=== PATIENT | male | born 1960 | race Two or more races ===

== ENCOUNTER 2021-08-03 17:04 | Inpatient (IN) | payer MEDICAID ==
[~2021-08-03] VITALS: Ht 167.6 cm; Wt 72.2 kg
[2021-08-03] MEDS ORDERED: OCTREOTIDE ACETATE 100 MCG in SODIUM CHL 0.9% 50 ML IV ONE (18:15)
[2021-08-03] MEDS ORDERED: cefTRIAXone 1GM/50ML D5W 50 ML IV ONE (18:15)
[2021-08-03] MEDS ORDERED: PANTOPRAZOLE 40 MG/10 ML VIAL INJ IV ONE (18:15)
[2021-08-03 18:51] LABS: INR 1.71 (0.9-1.15); Partial Thromboplastin Time 24.8 sec (23.6-33.0)
[2021-08-03] MEDS ORDERED: IOHEXOL 300 MG/ML 100ML BOTTLE IJ ONE ×2 (18:53→21:30)
[2021-08-03 18:54] LABS: Albumin 2.1 g/dL (3.4-5.0); Calcium 7.8 mg/dL (8.5-10.1); Potassium 3.9 mmol/L (3.5-5.1)
[2021-08-03 18:57] LABS: Lactic Acid w/Reflex 5.3 mmol/L (0.4-2.0)
[2021-08-03 19:05] LABS: BUN/Creatinine Ratio 48.4; Bilirubin, Total 4.6 mg/dL (0.2-1.0); Total Protein 5.7 g/dL (6.4-8.2)
[2021-08-03 19:20] LABS: Eosinophils # (auto) 0 10 ^3/uL (0-0.8); Hematocrit 28.4 % (41.0-53.0); Hemoglobin 9.5 g/dL (13.5-17.5); Monocytes # (auto) 0.7 10 ^3/uL (0-1.3)
[2021-08-03 19:35] LABS: Basophils # (auto) 0.1 10 ^3/uL (0-0.2); Basophils % (auto) 0.9 % (0.0-2.0); Eosinophils % (auto) 0.2 % (0.0-7.0); Lymphocytes # (auto) 1.1 10 ^3/uL (0.4-5.4); Lymphocytes % (auto) 18.2 % (10.0-50.0); Mean Corpuscular Hemoglobin 35.5 pg (28.0-32.0); Mean Corpuscular Hgb Conc. 33.6 g/dL (32.0-36.0); Mean Corpuscular Volume 105.5 fL (80.0-100.0); Monocytes % (auto) 10.7 % (0.0-12.0); Neutrophils # (auto) 4.3 10 ^3/uL (1.6-8.6); Nucleated Red Blood Cells % 0.9 %; Red Blood Cells 2.69 10^6/uL (4.5-5.90); Red Cell Distribution Width 15.1 % (11.8-14.3); White Blood Cell 6.1 10^3/uL (4.4-10.8)
[2021-08-03] MEDS ORDERED: SODIUM CHLORIDE 0.9% 1,000 ML IV ONE (19:45)
[2021-08-03] MEDS: OCTREOTIDE ACETATE 500 MCG in SODIUM CHL 0.9% 99 ML IV SCH (20:40)
[2021-08-03] MEDS ORDERED: ONDANSETRON HCL 4 MG/2 ML VIAL IV ONE (20:45)
[2021-08-03 22:34] VITALS: BP 97/58
[2021-08-03 23:55] VITALS: BP 94/61
[2021-08-04] VITALS (14 sets, daily range): BP systolic 90–125; BP diastolic 47–77
[2021-08-04] MEDS ORDERED: ACETAMINOPHEN 325 MG TAB PO ONE
[2021-08-04] MEDS ORDERED: PANTOPRAZOLE 40 MG/10 ML VIAL INJ IV ONE ×2 (01:00→02:05)
[2021-08-04] MEDS ORDERED: PANTOPRAZOLE 40mg/50ML NS AE 50 ML IV SCH (01:00)
[2021-08-04] MEDS ORDERED: VANCOMYCIN 1GM/250ML 250 ML IV ONE (01:00)
[2021-08-04] MEDS ORDERED: NITROGLYCERIN 0.4 MG SL TAB SL PRN (01:00)
[2021-08-04] MEDS ORDERED: MORPHINE SULFATE INJECTION 2 MG/ML SYRG IV PRN ×2 (01:00→06:00)
[2021-08-04 01:49] LABS: Hematocrit 23.7 % (41.0-53.0); Hemoglobin 8.3 g/dL (13.5-17.5)
[2021-08-04] MEDS: SODIUM CHLORIDE 0.9% 1,000 ML IV SCH ×3 (01:50→18:48)
[2021-08-04] MEDS ORDERED: ACETAMINOPHEN 325 MG TAB PO PRN (06:00)
[2021-08-04] MEDS: PIPERACILLIN-TAZOB 3.375GM 100 ML IV SCH ×3 (06:00→18:49)
[2021-08-04] MEDS ORDERED: HYDROcodone-ACET 5/325MG TAB PO PRN (06:00)
[2021-08-04] MEDS ORDERED: ONDANSETRON HCL 4 MG/2 ML VIAL IV SCH (06:00)
[2021-08-04 06:10] LABS: Basophils # (auto) 0 10 ^3/uL (0-0.2); Eosinophils # (auto) 0.1 10 ^3/uL (0-0.8); Neutrophils # (auto) 3.4 10 ^3/uL (1.6-8.6); Nucleated Red Blood Cells % 0.1 %
[2021-08-04] MEDS: NOREPINEPHRINE 8 MG/250ML KIT 250 ML IV SCH (06:10)
[2021-08-04 06:13] LABS: Basophils % (auto) 0.8 % (0.0-2.0); Hematocrit 23.5 % (41.0-53.0); Lymphocytes # (auto) 1.7 10 ^3/uL (0.4-5.4); Lymphocytes % (auto) 29.2 % (10.0-50.0); Mean Corpuscular Hemoglobin 35.2 pg (28.0-32.0); Mean Corpuscular Hgb Conc. 34.1 g/dL (32.0-36.0); Mean Corpuscular Volume 103.1 fL (80.0-100.0); Monocytes # (auto) 0.6 10 ^3/uL (0-1.3); Red Blood Cells 2.28 10^6/uL (4.5-5.90); Red Cell Distribution Width 17.4 % (11.8-14.3); White Blood Cell 5.7 10^3/uL (4.4-10.8)
[2021-08-04 06:15] LABS: Albumin 2.1 g/dL (3.4-5.0); Calcium 7.1 mg/dL (8.5-10.1)
[2021-08-04 06:22] LABS: BUN/Creatinine Ratio 46.8; Bilirubin, Total 3.3 mg/dL (0.2-1.0); Potassium 3.4 mmol/L (3.5-5.1); Total Protein 5.2 g/dL (6.4-8.2)
[2021-08-04 06:24] LABS: INR 1.54 (0.9-1.15)
[2021-08-04 06:35] LABS: Albumin 2.1 g/dL (3.4-5.0); BUN/Creatinine Ratio 41.6; Bilirubin, Total 3.1 mg/dL (0.2-1.0); Calcium 6.8 mg/dL (8.5-10.1); Potassium 3.2 mmol/L (3.5-5.1); Total Protein 5.2 g/dL (6.4-8.2)
[2021-08-04] MEDS ORDERED: ONDANSETRON HCL 4 MG/2 ML VIAL IV PRN (07:15)
[2021-08-04] MEDS ORDERED: PANTOPRAZOLE 40 MG/10 ML VIAL INJ IV SCH (10:00)
[2021-08-04] MEDS: VANCOMYCIN PER PHARMACY 0 MG IV SCH (11:45)
[2021-08-04 11:47] LABS: Urine Bacteria NONE SEEN /hpf (None Seen); Urine Blood Negative /uL (Negative); Urine Specific Gravity 1.035 (1.001-1.035); Urine WBC <1 /hpf (0 - 3)
[2021-08-04] MEDS ORDERED: FOLIC ACID 1 MG, MULTIPLE VITAMIN 10 ML, MAGNESIUM SULF SDV 50% 8 MEQ, THIAMINE INJ 100... INJ ONE ×5 (12:00)
[2021-08-04] MEDS: OCTREOTIDE ACETATE 500 MCG in SODIUM CHL 0.9% 99 ML IV SCH ×2 (12:05→14:15)
[2021-08-04 12:53] LABS: Hematocrit 25.8 % (41.0-53.0); Hemoglobin 8.9 g/dL (13.5-17.5)
[2021-08-04] MEDS: POTASSIUM CHL 20MEQ/100ML 100 ML IV SCH ×2 (13:09→15:58)
[2021-08-04] MEDS: VANCOMYCIN 1GM/250ML 250 ML IV SCH (15:18)
[2021-08-04 18:14] LABS: Hematocrit 25.3 % (41.0-53.0); Hemoglobin 8.6 g/dL (13.5-17.5)
[2021-08-04] MEDS: PANTOPRAZOLE 40 MG/10 ML VIAL INJ IV SCH (18:48)
[2021-08-04 22:39] LABS: Hematocrit 26.6 % (41.0-53.0); Hemoglobin 9.3 g/dL (13.5-17.5)
[2021-08-05] VITALS (7 sets, daily range): BP systolic 95–149; BP diastolic 60–99
[2021-08-05] MEDS: OCTREOTIDE ACETATE 500 MCG in SODIUM CHL 0.9% 99 ML IV SCH ×3 (00:23→22:06)
[2021-08-05] MEDS: PIPERACILLIN-TAZOB 3.375GM 100 ML IV SCH ×5 (00:36→23:44)
[2021-08-05] MEDS: NOREPINEPHRINE 8 MG/250ML KIT 250 ML IV SCH (01:00)
[2021-08-05] MEDS: SODIUM CHLORIDE 0.9% 1,000 ML IV SCH ×3 (01:00→19:30)
[2021-08-05] MEDS ORDERED: LORazepam 2MG/ML-1ML VIAL IV PRN (01:15)
[2021-08-05 02:34] LABS: Hematocrit 24.9 % (41.0-53.0); Hemoglobin 8.5 g/dL (13.5-17.5)
[2021-08-05] MEDS: VANCOMYCIN 1GM/250ML 250 ML IV SCH ×2 (03:13→15:30)
[2021-08-05] MEDS: PANTOPRAZOLE 40 MG/10 ML VIAL INJ IV SCH ×2 (05:46→18:00)
[2021-08-05 06:29] LABS: Basophils # (auto) 0 10 ^3/uL (0-0.2); Basophils % (auto) 0.6 % (0.0-2.0); Eosinophils # (auto) 0.1 10 ^3/uL (0-0.8); Monocytes # (auto) 0.4 10 ^3/uL (0-1.3); White Blood Cell 3.2 10^3/uL (4.4-10.8)
[2021-08-05 06:39] LABS: Potassium 3.5 mmol/L (3.5-5.1)
[2021-08-05 06:42] LABS: Eosinophils % (auto) 4.2 % (0.0-7.0); Hematocrit 24.9 % (41.0-53.0); Hemoglobin 8.2 g/dL (13.5-17.5); Lymphocytes % (auto) 31.3 % (10.0-50.0); Mean Corpuscular Hemoglobin 34.8 pg (28.0-32.0); Mean Corpuscular Hgb Conc. 33.1 g/dL (32.0-36.0); Mean Corpuscular Volume 105.1 fL (80.0-100.0); Monocytes % (auto) 12.3 % (0.0-12.0); Neutrophils # (auto) 1.6 10 ^3/uL (1.6-8.6); Neutrophils % (auto) 51.6 % (37.0-80.0); Nucleated Red Blood Cells % 0.2 %; Red Blood Cells 2.37 10^6/uL (4.5-5.90); Red Cell Distribution Width 18.8 % (11.8-14.3)
[2021-08-05 06:51] LABS: Albumin 2.2 g/dL (3.4-5.0); BUN/Creatinine Ratio 18.3; Bilirubin, Total 2.4 mg/dL (0.2-1.0); Calcium 7.1 mg/dL (8.5-10.1); Total Protein 5.2 g/dL (6.4-8.2)
[2021-08-05] MEDS: LORazepam 2MG/ML-1ML VIAL IV PRN ×3 (09:44→18:07)
[2021-08-05] MEDS: VANCOMYCIN PER PHARMACY 0 MG IV SCH (10:00)
[2021-08-05 10:21] LABS: Hematocrit 27.6 % (41.0-53.0)
[2021-08-05 10:23] LABS: Hemoglobin 9.1 g/dL (13.5-17.5)
[2021-08-05] MEDS: GABAPENTIN 300 MG CAP PO SCH ×2 (14:02→22:05)
[2021-08-05 15:38] LABS: Hemoglobin 8.4 g/dL (13.5-17.5)
[2021-08-05 22:17] LABS: Hematocrit 24.9 % (41.0-53.0); Hemoglobin 8.3 g/dL (13.5-17.5)
[2021-08-06] VITALS (12 sets, daily range): BP systolic 97–146; BP diastolic 57–93
[2021-08-06] MEDS: NOREPINEPHRINE 8 MG/250ML KIT 250 ML IV SCH (01:00)
[2021-08-06] MEDS: SODIUM CHLORIDE 0.9% 1,000 ML IV SCH ×3 (01:41→17:00)
[2021-08-06] MEDS: VANCOMYCIN 1GM/250ML 250 ML IV SCH ×3 (03:14→18:43)
[2021-08-06] MEDS: GABAPENTIN 300 MG CAP PO SCH ×3 (06:00→22:52)
[2021-08-06] MEDS: PANTOPRAZOLE 40 MG/10 ML VIAL INJ IV SCH ×2 (06:06→17:50)
[2021-08-06] MEDS: PIPERACILLIN-TAZOB 3.375GM 100 ML IV SCH ×3 (06:06→17:50)
[2021-08-06 06:09] LABS: Eosinophils # (auto) 0.2 10 ^3/uL (0-0.8); Hemoglobin 8.4 g/dL (13.5-17.5); Monocytes # (auto) 0.3 10 ^3/uL (0-1.3); Neutrophils # (auto) 1.6 10 ^3/uL (1.6-8.6); Neutrophils % (auto) 52.6 % (37.0-80.0); White Blood Cell 3.1 10^3/uL (4.4-10.8)
[2021-08-06 06:13] LABS: Basophils # (auto) 0.1 10 ^3/uL (0-0.2); Basophils % (auto) 2.7 % (0.0-2.0); Eosinophils % (auto) 5.7 % (0.0-7.0); Hematocrit 24.5 % (41.0-53.0); Lymphocytes # (auto) 0.9 10 ^3/uL (0.4-5.4); Lymphocytes % (auto) 30.2 % (10.0-50.0); Mean Corpuscular Hemoglobin 35.9 pg (28.0-32.0); Mean Corpuscular Hgb Conc. 34.3 g/dL (32.0-36.0); Mean Corpuscular Volume 104.8 fL (80.0-100.0); Monocytes % (auto) 8.8 % (0.0-12.0); Nucleated Red Blood Cells % 0.1 %; Red Blood Cells 2.34 10^6/uL (4.5-5.90); Red Cell Distribution Width 18.1 % (11.8-14.3)
[2021-08-06 06:20] LABS: Potassium 3.6 mmol/L (3.5-5.1)
[2021-08-06 06:27] LABS: INR 1.44 (0.9-1.15)
[2021-08-06 06:32] LABS: Albumin 2.3 g/dL (3.4-5.0); BUN/Creatinine Ratio 11.8; Bilirubin, Total 2.6 mg/dL (0.2-1.0); Calcium 7.3 mg/dL (8.5-10.1); Total Protein 5.5 g/dL (6.4-8.2)
[2021-08-06] MEDS ORDERED: LIDOCAINE VISCOUS 2% 15ML UD ONE (08:33)
[2021-08-06] MEDS ORDERED: MIDAZOLAM HCL 5 MG/ML-1ML VIAL ONE (08:33)
[2021-08-06] MEDS ORDERED: SODIUM CHLORIDE LOCK 10 ML ONE (08:33)
[2021-08-06] MEDS ORDERED: diphenhdrAMINE HCL 50 MG/1 ML VL ONE (08:34)
[2021-08-06] MEDS ORDERED: fentaNYL CITRATE 100 MCG/2 ML VL ONE (08:34)
[2021-08-06] MEDS: OCTREOTIDE ACETATE 500 MCG in SODIUM CHL 0.9% 99 ML IV SCH ×2 (08:49→16:35)
[2021-08-06] MEDS ORDERED: VANCOMYCIN PER PHARMACY 0 MG IV SCH ×2 (10:00)
[2021-08-06 11:37] LABS: INR 1.49 (0.9-1.15)
[2021-08-06] MEDS: LORazepam 2MG/ML-1ML VIAL IV PRN (17:01)
[2021-08-07 00:15] VITALS: BP 121/75
[2021-08-07] MEDS: LORazepam 2MG/ML-1ML VIAL IV PRN ×2 (00:23→15:12)
[2021-08-07] MEDS: NOREPINEPHRINE 8 MG/250ML KIT 250 ML IV SCH (01:00)
[2021-08-07] MEDS: SODIUM CHLORIDE 0.9% 1,000 ML IV SCH ×2 (01:26→09:37)
[2021-08-07 01:36] LABS: Basophils # (auto) 0 10 ^3/uL (0-0.2); Eosinophils # (auto) 0.2 10 ^3/uL (0-0.8); Hematocrit 23.2 % (41.0-53.0); Hemoglobin 7.9 g/dL (13.5-17.5); Lymphocytes # (auto) 0.8 10 ^3/uL (0.4-5.4); Lymphocytes % (auto) 22.3 % (10.0-50.0); Monocytes # (auto) 0.4 10 ^3/uL (0-1.3); Red Blood Cells 2.19 10^6/uL (4.5-5.90)
[2021-08-07 01:38] LABS: Basophils % (auto) 0.4 % (0.0-2.0); Eosinophils % (auto) 6.9 % (0.0-7.0); Mean Corpuscular Hemoglobin 36.1 pg (28.0-32.0); Mean Corpuscular Hgb Conc. 34.1 g/dL (32.0-36.0); Monocytes % (auto) 10.7 % (0.0-12.0); Neutrophils # (auto) 2.1 10 ^3/uL (1.6-8.6); Neutrophils % (auto) 59.7 % (37.0-80.0); Nucleated Red Blood Cells % 0.2 %; Red Cell Distribution Width 17.8 % (11.8-14.3); White Blood Cell 3.5 10^3/uL (4.4-10.8)
[2021-08-07] MEDS: OCTREOTIDE ACETATE 500 MCG in SODIUM CHL 0.9% 99 ML IV SCH (02:28)
[2021-08-07] MEDS: VANCOMYCIN 1GM/250ML 250 ML IV SCH ×2 (03:41→12:31)
[2021-08-07 05:54] LABS: White Blood Cell 3.4 10^3/uL (4.4-10.8)
[2021-08-07 05:56] LABS: Hematocrit 25.3 % (41.0-53.0); Hemoglobin 8.9 g/dL (13.5-17.5); Mean Corpuscular Hgb Conc. 35.4 g/dL (32.0-36.0); Mean Corpuscular Volume 104.7 fL (80.0-100.0); Red Blood Cells 2.41 10^6/uL (4.5-5.90); Red Cell Distribution Width 17.8 % (11.8-14.3)
[2021-08-07 05:57] LABS: Basophils % (manual) 0 (0.0-2.0); Blast Cells 0; Promyelocytes % 0; Reactive Lymphocytes 0
[2021-08-07] MEDS: PIPERACILLIN-TAZOB 3.375GM 100 ML IV SCH ×3 (05:57→12:32)
[2021-08-07] MEDS: PANTOPRAZOLE 40 MG/10 ML VIAL INJ IV SCH (05:57)
[2021-08-07] MEDS: GABAPENTIN 300 MG CAP PO SCH ×4 (05:57→23:12)
[2021-08-07 06:12] LABS: Albumin 2.2 g/dL (3.4-5.0); BUN/Creatinine Ratio 7.7; Calcium 7.5 mg/dL (8.5-10.1); Potassium 3.9 mmol/L (3.5-5.1)
[2021-08-07 06:14] LABS: Bilirubin, Total 2.5 mg/dL (0.2-1.0); Total Protein 5.6 g/dL (6.4-8.2)
[2021-08-07 06:15] LABS: INR 1.54 (0.9-1.15); Partial Thromboplastin Time 25.1 sec (23.6-33.0)
[2021-08-07 07:01] LABS: Band Neutrophils % (manual) 1; Eosinophils % (manual) 3 (0-7); Lymphocytes % (manual) 35 (10.0-50.0); Metamyelocytes % 1; Monocytes % (manual) 7 (0-12); Myelocytes % 1
[2021-08-07] MEDS ORDERED: SODIUM CHLORIDE LOCK 10 ML ONE (09:19)
[2021-08-07] MEDS ORDERED: LIDOCAINE VISCOUS 2% 15ML UD ONE (09:19)
[2021-08-07] MEDS ORDERED: diphenhdrAMINE HCL 50 MG/1 ML VL ONE (09:20)
[2021-08-07] MEDS: MIDAZOLAM HCL 5 MG/ML-1ML VIAL ONE ×2 (09:54→09:57)
[2021-08-07] MEDS: fentaNYL CITRATE 100 MCG/2 ML VL ONE ×2 (09:54→09:57)
[2021-08-07 12:15] VITALS: BP 147/93
[2021-08-07 13:00] VITALS: BP 147/93
[2021-08-07] MEDS ORDERED: GABA300C10 PO (16:47)
[2021-08-07] MEDS ORDERED: AMOX-277 PO (16:50)
[2021-08-07] MEDS ORDERED: PANT40T PO (16:50)
[2021-08-07 17:00] VITALS: BP 143/92
[2021-08-07 22:00] VITALS: BP 141/89
[2021-08-07] MEDS: AMOXICILLIN/CLAVUL 875 MG TAB PO SCH (23:10)
[2021-08-07] MEDS: PANTOPRAZOLE 40 MG TAB PO SCH (23:13)
[2021-08-08 05:00] VITALS: BP 120/95
[2021-08-08] MEDS: LORazepam 2MG/ML-1ML VIAL IV PRN ×2 (06:19→13:08)
[2021-08-08 09:00] VITALS: BP 133/94
[2021-08-08] MEDS: PANTOPRAZOLE 40 MG TAB PO SCH (10:00)
[2021-08-08] MEDS: AMOXICILLIN/CLAVUL 875 MG TAB PO SCH (10:00)
[2021-08-08] MEDS ORDERED: BACL10TA PO (10:33)
[2021-08-08] MEDS ORDERED: LIDO1PAD55 TOP (10:33)
[2021-08-08] MEDS ORDERED: NAP500T PO (10:33)
[2021-08-08] MEDS ORDERED: DICL1GEL50 TOP (10:33)
[2021-08-08 12:47] VITALS: BP 101/62
[2021-08-08] MEDS: GABAPENTIN 300 MG CAP PO SCH (14:00)
[2021-08-08 16:54] VITALS: BP 124/86
== END 2021-08-08 19:42 | disposition home or self-care (01) | DRG 422 ==
LOC: ER 17:04 → EDBD 17:04 → OVERFLOW 08-04 00:47 → TELE-WESTW 08-07 11:49
PROVIDERS: ADMIT Nurse Practitioner Family; ATTEND Nurse Practitioner Family
PROC: 30233N1 Transfusion of Nonautologous Red Blood Cells into Peripheral Vein, Percutaneous Approach (ICD-10-PCS; principal; 2021-08-03)
PROC: 30233R1 Transfusion of Nonautologous Platelets into Peripheral Vein, Percutaneous Approach (ICD-10-PCS; 2021-08-04)
PROC: 30233K1 Transfusion of Nonautologous Frozen Plasma into Peripheral Vein, Percutaneous Approach (ICD-10-PCS; 2021-08-04)
PROC: 0DJ08ZZ Inspection of Upper Intestinal Tract, Via Natural or Artificial Opening Endoscopic (ICD-10-PCS; 2021-08-07)
DX: E86.0 Dehydration (principal); J96.01 Acute respiratory failure with hypoxia; I21.A1 Myocardial infarction type 2; D61.818 Other pancytopenia; I85.01 Esophageal varices with bleeding; K29.61 Other gastritis with bleeding; K92.0 Hematemesis; D68.4 Acquired coagulation factor deficiency; D68.9 Coagulation defect, unspecified; K76.6 Portal hypertension; K70.30 Alcoholic cirrhosis of liver without ascites; F10.20 Alcohol dependence, uncomplicated; E87.6 Hypokalemia; B19.20 Unspecified viral hepatitis C without hepatic coma; F10.239 Alcohol dependence with withdrawal, unspecified; F17.200 Nicotine dependence, unspecified, uncomplicated; I25.10 Atherosclerotic heart disease of native coronary artery without angina pectoris; J98.11 Atelectasis; M06.9 Rheumatoid arthritis, unspecified; I50.9 Heart failure, unspecified; K31.89 Other diseases of stomach and duodenum; Z83.3 Family history of diabetes mellitus; Z85.05 Personal history of malignant neoplasm of liver; Z91.19 Patient's noncompliance with other medical treatment and regimen; D53.9 Nutritional anemia, unspecified; Z20.822 Contact with and (suspected) exposure to COVID-19
CPT/HCPCS: 36415; 43235; 70450; 70551; 71045; 74177; 76604; 80053; 80202; 81001; 82140; 82565; 83605; 83690; 83735; 84484; 85007; 85014; 85018; 85025; 85027; 85610; 85730; 86850; 86900; 86901; 86920; 87040; 87426; 93005; 93306; 95819; 96365; 96367; 96375; 96376; C9113; G0378; J0696; J2250; J2405; J2543; J3480

== ENCOUNTER 2024-07-17 10:40 | Inpatient (IN) | payer MEDICAID ==
[~2024-07-17] VITALS: Ht 175.3 cm; Wt 76.4 kg
[~2024-07-17 10:40] MED LIST: AMOX875T4 PO; BACL10TA PO; DICL1GEL73 TOP; GABA-1250 PO; LIDO1PAD55 TOP; NAP500T PO; PANT40T PO
[2024-07-17 11:47] LABS: Alanine Aminotransferase 48 U/L (7-40); Albumin 3.3 g/dL (3.2-4.8); Alkaline Phosphatase 118 U/L (46-116); Anion Gap 6 (5-15); Aspartate Aminotransferase 90 U/L (13-40); BUN/Creatinine Ratio 9.6 (10.0-20.0); Bilirubin, Total 6.1 mg/dL (0.2-1.0); Blood Urea Nitrogen 7 mg/dL (9-23); Calcium 8.9 mg/dL (8.7-10.4); Carbon Dioxide 26 mmol/L (20-30); Chloride 107 mmol/L (98-107); Glucose 104 mg/dL (74-106); Potassium 3.6 mmol/L (3.5-5.1); Sodium 139 mmol/L (136-145); Total Protein 7.4 g/dL (5.7-8.2)
[2024-07-17 12:37] LABS: Urine Bacteria None Seen /hpf (None Seen)
[2024-07-17 13:17] LABS: Urine Amorphous Crystal FEW /hpf (None Seen); Urine Blood Negative /uL (Negative); Urine Clarity Clear (Clear); Urine Color Dark-Yellow (Yellow); Urine Hyaline Cast FEW /lpf (0 - 2); Urine Mucus FEW (None Seen); Urine Protein, UAD TRACE (Negative); Urine Specific Gravity 1.024 (1.001-1.035); Urine Urobilinogen OVER mg/dL (Negative); Urine WBC 2 /hpf (0 - 3)
[2024-07-17 13:46] LABS: Hematocrit 36.4 % (41.0-53.0); Hemoglobin 12.4 g/dL (13.5-17.5); Mean Corpuscular Hemoglobin 36.3 pg (28.0-32.0); Mean Corpuscular Volume 106.8 fL (80.0-100.0); Platelet Count (auto) 59 10^3/uL (140-450); Red Cell Distribution Width 16.7 % (11.8-14.3); White Blood Cell 4.5 10^3/uL (4.4-10.8)
[2024-07-17 14:00] LABS: Band Neutrophils % (manual) 0; Basophils % (manual) 0 (0.0-2.0); Blast Cells 0; Metamyelocytes % 0; Myelocytes % 0; Promyelocytes % 0; Reactive Lymphocytes 0
[2024-07-17 14:09] LABS: Eosinophils % (manual) 7 (0-7); Lymphocytes % (manual) 23 (10.0-50.0)
[2024-07-17 14:10] LABS: Monocytes % (manual) 22 (0-12)
[2024-07-17 14:11] LABS: Anisocytosis Slight; Macrocytosis Moderate; Platelet Estimate Decreased
[2024-07-17 14:12] LABS: Ovalocytes FEW
[2024-07-17] MEDS ORDERED: ACETAMINOPHEN 325 MG TAB PO PRN (15:00)
[2024-07-17] MEDS: SODIUM CHLORIDE 0.9% 1,000 ML IV SCH (15:00)
[2024-07-17] MEDS ORDERED: HYDROcodone-ACET 5/325MG TAB PO PRN (15:00)
[2024-07-17 17:03] VITALS: PULSE 78; RESP 16; O2SAT 99
[2024-07-17] MEDS: ONDANSETRON HCL 4 MG/2 ML VIAL IV PRN (17:10)
[2024-07-17] MEDS: MORPHINE SULFATE INJ 2 MG/ml SYRG IV PRN (17:11)
[2024-07-17 21:20] VITALS: BP 140/59; PULSE 90; RESP 18; TEMP 97.5; O2SAT 100
[2024-07-17] MEDS: PANTOPRAZOLE 40 MG TAB PO SCH (21:34)
[2024-07-17] MEDS: GABAPENTIN 300 MG CAP PO SCH (21:34)
[2024-07-17 22:32] VITALS: BP 140/59; PULSE 90; RESP 18; TEMP 97.5; O2SAT 100
[2024-07-17 23:59] LABS: Amphetamine Screen, Urine Neg (NEGATIVE); Barbiturate Scree,Urine Neg (NEGATIVE); Benzodiazephine Screen, Urine Neg (NEGATIVE); Cannabinoid Screen, Urine Pos (NEGATIVE); Cocaine Screen, Urine Neg (NEGATIVE); Opiate Scree,Urine Pos (NEGATIVE); Phencyclidine Screen, Urine Neg (NEGATIVE)
[2024-07-18 01:00] VITALS: BP 132/80; PULSE 81; RESP 18; TEMP 99.3; O2SAT 94
[2024-07-18 05:00] VITALS: BP 125/80; PULSE 77; RESP 20; TEMP 98.7; O2SAT 93
[2024-07-18 06:40] LABS: Hematocrit 27.5 % (41.0-53.0); Hemoglobin 9.7 g/dL (13.5-17.5)
[2024-07-18 06:44] LABS: Mean Corpuscular Hemoglobin 36.6 pg (28.0-32.0); Mean Corpuscular Hgb Conc. 35.1 g/dL (32.0-36.0); Mean Corpuscular Volume 104.2 fL (80.0-100.0); Platelet Count (auto) 43 10^3/uL (140-450); Red Blood Cells 2.64 10^6/uL (4.5-5.90); Red Cell Distribution Width 16.6 % (11.8-14.3); White Blood Cell 3.1 10^3/uL (4.4-10.8)
[2024-07-18 07:08] LABS: Basophils % (manual) 0 (0.0-2.0); Blast Cells 0; Metamyelocytes % 0; Myelocytes % 0; Promyelocytes % 0; Reactive Lymphocytes 0
[2024-07-18 07:09] LABS: Alanine Aminotransferase 33 U/L (7-40); Alkaline Phosphatase 70 U/L (46-116); Anion Gap 7 (5-15); BUN/Creatinine Ratio 17.6 (10.0-20.0); Blood Urea Nitrogen 9 mg/dL (9-23); Calcium 7.2 mg/dL (8.7-10.4); Carbon Dioxide 20 mmol/L (20-30); Chloride 109 mmol/L (98-107); Glucose 77 mg/dL (74-106); Potassium 3.6 mmol/L (3.5-5.1); Sodium 136 mmol/L (136-145)
[2024-07-18 07:11] LABS: Albumin 2.4 g/dL (3.2-4.8); Aspartate Aminotransferase 66 U/L (13-40)
[2024-07-18 07:12] LABS: Bilirubin, Total 5.1 mg/dL (0.2-1.0); Total Protein 5.4 g/dL (5.7-8.2)
[2024-07-18 08:31] LABS: Band Neutrophils % (manual) 1; Eosinophils % (manual) 7 (0-7); Lymphocytes % (manual) 35 (10.0-50.0); Monocytes % (manual) 22 (0-12); Platelet Estimate Decreased
[2024-07-18 08:32] LABS: Anisocytosis Slight; Macrocytosis Slight
[2024-07-18 09:00] VITALS: BP 148/82; PULSE 81; RESP 17; TEMP 98.2; O2SAT 95
[2024-07-18 12:42] LABS: INR 1.57 (0.9-1.15); Prothrombin Time 16.1 sec (9.3-11.8)
[2024-07-18 13:00] VITALS: BP 132/75; PULSE 72; RESP 18; TEMP 98.4; O2SAT 97
[2024-07-18] MEDS ORDERED: GADOTERATE MEG 10 MMOL/20ml INJ (0.5MMOL/ml) IV ONE (13:30)
[2024-07-18] MEDS ORDERED: DOCUSATE SOD 100 MG CAP PO PRN (13:45)
[2024-07-18] MEDS ORDERED: LORazepam 2MG/ML-1ML VIAL IV ONE (14:00)
[2024-07-18] MEDS: cefTRIAXone 1GM/50ML D5W 50 ML IV ONE (14:46)
[2024-07-18] MEDS: AZITHROMYCIN 500MG/ 250ML 250 ML IV ONE (16:09)
[2024-07-18 17:00] VITALS: BP 137/84; PULSE 79; RESP 16; TEMP 97.8; O2SAT 96
[2024-07-18] MEDS: LACTULOSE 20Gm/30ML SOLN PO SCH (23:30)
[2024-07-19 01:00] VITALS: BP 80/57; PULSE 66; RESP 18; TEMP 98.4; O2SAT 94
[2024-07-19 05:00] VITALS: BP 120/92; PULSE 69; RESP 18; TEMP 97.8; O2SAT 95
[2024-07-19 09:05] VITALS: BP 135/87; PULSE 66; RESP 20; TEMP 98.4; O2SAT 97
[2024-07-19] MEDS: cefTRIAXone 1GM/50ML D5W 50 ML IV SCH (10:19)
[2024-07-19] MEDS ORDERED: LEVO500T91 PO (11:32)
[2024-07-19] MEDS: AZITHROMYCIN 500MG/ 250ML 250 ML IV SCH (12:53)
[2024-07-19 13:33] VITALS: BP 121/76; PULSE 67; RESP 18; TEMP 98.2; O2SAT 97
== END 2024-07-19 14:21 | disposition home or self-care (01) | DRG 351 ==
LOC: ER 10:40 → OVERFLOW 15:27 → CENTRAL 21:20
PROVIDERS: ADMIT Registered Nurse; ATTEND Internal Medicine Geriatric Medicine
DX: M19.012 Primary osteoarthritis, left shoulder (principal); J15.69 Pneumonia due to other Gram-negative bacteria; D69.6 Thrombocytopenia, unspecified; E44.0 Moderate protein-calorie malnutrition; D68.9 Coagulation defect, unspecified; E88.09 Other disorders of plasma-protein metabolism, not elsewhere classified; J15.9 Unspecified bacterial pneumonia; B19.20 Unspecified viral hepatitis C without hepatic coma; D53.9 Nutritional anemia, unspecified; S40.012A Contusion of left shoulder, initial encounter; K70.30 Alcoholic cirrhosis of liver without ascites; X58.XXXA Exposure to other specified factors, initial encounter; Y92.89 Other specified places as the place of occurrence of the external cause; Y93.89 Activity, other specified; Y99.8 Other external cause status; Z68.24 Body mass index [BMI] 24.0-24.9, adult
CPT/HCPCS: 36415; 71045; 73030; 73220; 80053; 80307; 81001; 82140; 84484; 85007; 85027; 85610; 93005; 93971; 96374; G0378; J2405

== ENCOUNTER 2025-03-20 09:41 | Emergency (ER) | payer OTHER, MEDICAID ==
[~2025-03-20] VITALS: Ht 177.8 cm; Wt 94.0 kg
[~2025-03-20 09:41] MED LIST changes: -AMOX875T4 PO; +LEVO500T91 PO
[2025-03-20] MEDS ORDERED: DEXTROSE (50%) 50ML SYRG IV ONE (09:42)
[2025-03-20] MEDS ORDERED: SODIUM BICARB 8.4% 50Meq/50ml SYR INJ IV ONE (09:42)
[2025-03-20 09:51] VITALS: PULSE 78; RESP 18; O2SAT 70
[2025-03-20] MEDS: EPINEPHrine HCL 250 ML IV SCH (09:55)
[2025-03-20 10:05] VITALS: O2SAT 70
[2025-03-20] MEDS: NOREPINEPHRINE 8 MG/250ML KIT 250 ML IV SCH (10:05)
[2025-03-20] MEDS: MIDAZOLAM DRIP 50 mg/50mL 50 ML IV SCH (10:05)
--- NOTE | 2025-03-20 10:12 | ECG ---
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
--- NOTE | 2025-03-20 10:13 | ED.PDOC ---
CPR-HPI HPI Comments 64 year old male presents to the ED with a chief compliant of cardiac arrest onset today (03/20/25). Per EMS, patient was walking to the restroom, when he went unconscious, witnessed by caregiver. PMHx liver cirrhosis. Total downtime prior to ED arrival was 25 minutes, patient was intubated in route ET 7, 24 cm at teeth, IO on LT tib fib. Patient had agonal respirations upon EMS arrival, V tach was shocked 200 joules, was asystole. Upon ED arrival, jaundice was noted as well as RT leg, RT abdomen bruising, BS reading was "low." ROSC 09:50. Chief Complaint: CPR Time Seen by MD: 09:40 Primary Care Provider: NONE Reviewed Notes: Medications, Allergies Allergies: Coded Allergies: NO KNOWN ALLERGIES (Unverified , 08/03/21) Home Meds Active Scripts Levofloxacin Hemihydrate (LEVAQUIN 500 MG) 500 Mg Tab, 1 TAB PO DAILY, #7 TAB Prov:DWAYNE PHILLIPS MD 07/19/24 Pantoprazole Sodium Sesquihydr (Pantoprazole Sodium) 40 Mg Tab, 40 MG PO BID, #60 TAB Prov:LALIT LITTLE MD 08/07/21 Gabapentin (Gabapentin) 300 Mg Cap, 300 MG PO TID, #30 CAP take 300 mg PO TID x 5 days, take 300 mg PO BID x 5 days, take 300 mg PO Daily x 5 Days Prov:LALIT LITTLE MD 08/07/21 Reported Medications Lidocaine (Lidocaine) 5 % Pad, 1 PATCH TOP DAILYPRN 08/08/21 Diclofenac Sodium (Topical) (Diclofenac Sodium) 1 % Gel, TOP 08/08/21 Baclofen (Baclofen) 10 Mg Tab, 1 TAB PO BID 08/08/21 Naproxen (NAPROSYN TABLET) 500 Mg Tb, 1 TAB PO BID 08/08/21 Information Source: Relative (Child), Emergency Med Personnel Mode of Arrival: Ambulatory Timing: Minutes Duration: Down time prior EMS:, Total time prior hopital: (25 minutes) Comments 5 minutes Available Hx: Other Inital rhythm: V-tach Treatment: CPR, Intubation, Epinephrine Past Medical History PAST MEDICAL HISTORY: Cancer, Liver Surgical History: Denies all surgeries Family History Family History: Unknown Social History Smoker: Non-Smoker Alcohol: Heavy Drugs: Denies Drug Use Lives In: Home Unable to Obtain due to: Medical Urgency, Intubated Physical Exam General Appearance: Severe Distress HEENT: Scleral Icterus (L) Neck: NOT DONE Respiratory: Respiratory Distress, Other (Intubated) Cardiovascular: Other (No pulse) Breast Exam: Deferred Gastrointestinal: Distended Genitalia: Deferred Pelvic: Deferred Rectal: Deferred Extremities: Other (Unconscious) Musculoskeletal : Apperance: Normal Neurologic: Other (Unconscious) Cerebellar Function: NOT DONE Reflexes: NOT DONE Skin: Bruises, Jaundice Peripheral Pulses: 0 Radial (R), 0 Radial (L) Lymphatic: NOT DONE Was a procedure done? 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 Indication: Inability to obtain IV Room prepared for procedure: Yes Top Waddy performed hand hygien: Yes Maximal sterile barrier precau: Mask/Eye shield, Sterile gown, Cap, Sterlie gloves, Large sterlie drape Skin Preparation: Chlorhexidine gluconate, Providine iodine, Alcohol Skin preparation completely dr: Yes Insertion site: Right, Femoral Central line catheter type: [id number] dialysis Number of lumens: 3 Central line exchanged over a: No Antiseptic ointment applied to: Yes Post Assessment: Proper placement Intubation Indication: Respiratory Insufficiency Prep: Preoxygenation Pretreated with: Sedation Intubation Approach: Orotracheal Intubation size: cm (24) Differential Dx CPR Differential Diagnosis: Cardiopulmonary arrest, Dysrhythmia X-Ray, Labs, Meds, VS Vital Signs Date Time Temp Pulse Resp B/P (MAP) Pulse Ox O2 Delivery O2 Flow Rate FiO2 03/20/25 11:45 72 Ambu-Bag 03/20/25 11:34 78 Ambu-Bag 50 03/20/25 10:50 68/25 03/20/25 10:50 90.9 55 17 (39) 90.9 03/20/25 10:45 69/45 03/20/25 10:41 56 15 69/45 (53) 03/20/25 10:39 55/40 03/20/25 10:39 55/40 03/20/25 10:30 54 14 93/60 (71) 03/20/25 10:27 79/28 03/20/25 10:21 125/26 03/20/25 10:15 65 19 101/38 (59) 03/20/25 10:05 102/03/20/25 10:05 102/03/20/25 10:05 102/03/20/25 10:05 78 15 102/73 (83) 70 03/20/25 10:04 78 03/20/25 10:00 102/03/20/25 10:00 80 03/20/25 09:58 102/03/20/25 09:55 10203/20/25 09:51 78 18 70 Mechanical Ventilator+ 100 100 03/20/25 09:50 74 21 102/ (83) 100 03/20/25 09:41 0 0 0/0 (0) 0 Lab Test 03/20/25 09:51 Range/Units White Blood Count 7.6 4.4-10.8 10^3/uL Red Blood Count 0.85 L 4.5-5.90 10^6/uL Hemoglobin 3.2 *L 13.5-17.5 g/dL Hematocrit 10.9 L 41.0-53.0 % Mean Corpuscular Volume 129.1 H 80.0-100.0 fL Mean Corpuscular Hemoglobin 37.5 H 28.0-32.0 pg Mean Corpuscular Hemoglobin Concent 29.0 L 32.0-36.0 g/dL Red Cell Distribution Width 23.0 H 11.8-14.3 % Platelet Count 38 L 140-450 10^3/uL Mean Platelet Volume 11.8 H 6.9-10.8 fL Neutrophils (%) (Auto) 37.0-80.0 % Lymphocytes (%) (Auto) 10.0-50.0 % Monocytes (%) (Auto) 0.0-12.0 % Basophils (%) (Auto) 0.0-2.0 % Neutrophils # (Auto) 1.6-8.6 10 ^3/uL Lymphocytes # (Auto) 0.4-5.4 10 ^3/uL Monocytes # (Auto) 0-1.3 10 ^3/uL Differential Total Cells Counted 100.0 100 Neutrophils % (Manual) 64 37.0-80.0 Band Neutrophils % (Manual) 1 Lymphocytes % (Manual) 26 10.0-50.0 Monocytes % (Manual) 6 0-12 Eosinophils % (Manual) 2 0-7 Basophils % (Manual) 0 0.0-2.0 Metamyelocytes % (manual) 0 Myelocytes % (Manual) 1 Promyelocytes % (Manual) 0 Blast Cells % (Manual) 0 Reactive Lymphocytes 0 Platelet Estimate Decreased Poikilocytosis (manual) Moderate Anisocytosis (manual) Slight Macrocytosis Marked Geovani Cells Many Sodium Level 136 136-145 mmol/L Potassium Level 7.5 *H 3.5-5.1 mmol/L Chloride Level 106 98-107 mmol/L Carbon Dioxide Level < 10 *L 20-31 mmol/L Anion Gap 20.23251 H 5-15 Blood Urea Nitrogen 76 H 9-23 mg/dL Creatinine 5.79 H 0.700-1.30 mg/dL Glomerular Filtration Rate Calc 10 >90 mL/min BUN/Creatinine Ratio 13.1 10.0-20.0 Serum Glucose 164 H 74-106 mg/dL Calcium Level 7.8 L 8.7-10.4 mg/dL Total Bilirubin 15.3 H 0.2-1.0 mg/dL Aspartate Amino Transferase (AST) 847 H 13-40 U/L Alanine Aminotransferase (ALT) 237 H 7-40 U/L Alkaline Phosphatase 47 46-116 U/L Troponin I High Sensitivity 23 </=54 ng/L Total Protein 3.3 L 5.7-8.2 g/dL Albumin 1.4 L 3.2-4.8 g/dL Current Medications Medications (Trade) Dose Ordered Sig/Bobby Route Start Time Stop Time Status Last Admin Epinephrine HCl 250 ml @ 7.5 mls/hr Q24H IV 03/20/25 10:30 03/20/25 17:20 DC 03/20/25 09:55 Norepinephrine Bitartrate 250 ml @ 3.75 mls/hr Q24H IV 03/20/25 10:30 03/20/25 17:20 DC 03/20/25 10:05 Midazolam HCl 50 ml @ 1 mls/hr Q24H IV 03/20/25 10:45 03/20/25 17:20 DC 03/20/25 10:05 Dopamine HCl/ Dextrose 250 ml @ 17.625 mls/ hr [id number] IV 03/20/25 10:45 03/20/25 17:20 DC 03/20/25 10:39 [place] [id number] Ph: [phone] DIAGNOSTIC IMAGING Diagnostic Imaging Report : [id number] Signed PATIENT: MYRIAM ROME ACCT: [id number] UNIT: [id number] : 1960 LOC: ER ROOM / BED: / AGE / SEX: 64 / M ADM STATUS: REG ER SERVICE 1012 ORDERING PHYSICIAN: ELZA DUNN MD PROCEDURE(s): CXR1 - CHEST XRAY 1 VIEW REASON: POST INTUBATION ORDER NUMBER(s): [id number], ACCESSION NUMBER(s): [id number] EXAM: XY CHEST XRAY 1 VIEW Indication: POST INTUBATION Technique: Single frontal view of the chest was obtained Comparison: XY CHEST PORTABLE on DOS: 07/17/24, CHEST XRAY 1 VIEW on DOS: 08/04/21, CHEST XRAY 1 VIEW on DOS: 08/03/21 FINDINGS: Lines and Tubes: Endotracheal tube projects 3 cm above the level the jesus. Enteric tube appears to be in the hiatal hernia in the chest. Recommend advancement. Lungs: Left basilar atelectasis Pleura: Possible trace left pleural effusion. No pneumothorax. Cardiomediastinal contours: Unremarkable Bones: No acute osseous abnormality. IMPRESSION: Endotracheal tube projects 3 cm above the level the jesus. Enteric tube appears to be in the hiatal hernia in the chest. Recommend advancement. ATED BY: SHIVANI ZHENG MD DICTATED DATE/TIME: 03/20/25 105 SIGNED BY: SHIVANI ZHENG MD SIGNED DATE/TIME: 03/20/25 105 CC: Patient unconscious. CPR in progress pain Transferred care to ER. Continuous CPR. Exchange the ET tube to be good tube. Yellow in color. Jaundiced. Chronic condition. Witnessed arrest. Was able to revive with the patient after ACLS drugs. Placed on Levophed. Epinephrine drip. Family at bedside. Explained to the family. Place a central line. Critical condition. Time of 1ST Reevaluation: 10:20 Reevaluation 1ST: Unchanged Patient Education/Counseling: Pt Unresponsive Family Education/Counseling: Diagnosis, Treatment, Prognosis Departure 1 Departure Time of Disposition: 11:56 Impression: Primary Impression: Cardiac arrest Additional Impressions: Metabolic encephalopathy Respiratory failure Qualified Codes: J96.01 - Acute respiratory failure with hypoxia Disposition: 09 ADMITTED INPATIENT Admit to: ICU Condition: Guarded Critical Care Note Critical Care Time?: Yes (90 min-critical care time only) Heart Score Heart Score: Heart Score Response (Comments) Value History N/A 0 EKG N/A 0 Age N/A 0 Risk Factors N/A 0 Troponin N/A 0 Total 0 Stability Stability form required: No I personally scribed for ELZA DUNN MD ([email or web address]) on 03/20/25 at 10:13. Electronically submitted by Miri Lujan ([email or web address]). I personally scribed for ELZA DUNN MD ([email or web address]) on 03/20/25 at 11:42. Electronically submitted by Miri Lujan ([email or web address]). ELZA DUNN MD March 20, 2025 10:13
[2025-03-20] MEDS: DOPamine 1600MCG/ML D5W 250 ML IV SCH (10:39)
[2025-03-20 10:50] VITALS: BP 68/25; PULSE 55; RESP 17; TEMP 90.9
--- NOTE | 2025-03-20 10:55 | DVH ---
EXAM: XY CHEST XRAY 1 VIEW Indication: POST INTUBATION Technique: Single frontal view of the chest was obtained Comparison: XY CHEST PORTABLE on DOS: 07/17/24, CHEST XRAY 1 VIEW on DOS: 08/04/21, CHEST XRAY 1 VIEW on DOS: 08/03/21 FINDINGS: Lines and Tubes: Endotracheal tube projects 3 cm above the level the jesus. Enteric tube appears to be in the hiatal hernia in the chest. Recommend advancement. Lungs: Left basilar atelectasis Pleura: Possible trace left pleural effusion. No pneumothorax. Cardiomediastinal contours: Unremarkable Bones: No acute osseous abnormality. IMPRESSION: Endotracheal tube projects 3 cm above the level the jesus. Enteric tube appears to be in the hiatal hernia in the chest. Recommend advancement.
[2025-03-20] MEDS: NOREPINEPHRINE 8 MG/250ML KIT 250 ML IV ONE (11:11)
[2025-03-20] MEDS: ROCURONIUM 10MG/ML 10ML VIAL IV ONE (11:11)
[2025-03-20] MEDS: MIDAZOLAM DRIP 50 mg/50mL 50 ML IV ONE (11:11)
[2025-03-20] MEDS: EPINEPHrine HCL 250 ML IV ONE (11:11)
--- NOTE | 2025-03-20 11:34 | RESUS ---
CODE BLUE ASSESSSMENT History of Events History of Events: Patient brought to ER via after witnessed cardiac arrest. HX of liver disease. Per EMS, family witness patient become weak and unresponsive while attempting to use the restroom. Upon EMS arrival patient displayed agonal breathinig with no detectable pulse. CPR started by EMS. In route to ER, Vtach detected during pulse check. Shocked at 200j. Total 3 epi given prior to ER arrival. Initial Information Date: March 20, 2025 Time: 09:41 Location of Arrest: In Field Arrest Witnessed: Yes CPR started by whom: EMS Pre-Hospital Care: ACLS Type of arrest: Cardiac, Respiratory Spontaneous Respirations: No Pulse Present: No Monitoring: ECG, Capnography, Telemetry Crash Cart Opened and Supplies: Yes Airway Ventilation Breathing at Onset: Assisted Oxygen Delivery Method: Ambu-Bag Artificial Ventilation: Bag/Endo tube Intubation Size: 7.0 cuffed Intubated by: EMS Intubated orally: Yes Tube secured at: 24 CO2 indicator used: Yes Confirmation: Auscultation Comments: Patient was reintubated by Dr Daniels after ROSC to 8.0/ 24 at the teeth Circulation Circulation #1: Time: 09:43 Circulation Comment: asystole Circulation #2: Time: 09:45 Circulation Comment: PEA Circulation #3: Time: 09:47 Circulation Comment: PEA Circulation #4: Time: 09:49 Pulse Rate (adult): 50 Blood Pressure Systolic: 102 Blood Pressure Diastolic: 73 Circulation Comment: ROSC Procedure - IV Procedure - IV : IV start time: 09:44 IV Side: Left IV Location: Hand IV Catheter Type: Peripheral IV IV Placed: In Hospital IV Placed by ROCAEL Tellez IV Gauge: 20 IV Line Care: Saline Flush Procedure - Intraosseous Site of Intraosseous: Tibia ana-medial Intraosseous inserted by: EMS Medications & Response Medications and Responses #1: Medication Time: 09:42 ADULT Medications Given ADULT: Epinephrine 1 mg, Sodium Bacarbinate 50 meq, D50 (amp) Route of Administration: IO Medications and Responses #2: Medication Time: 09:45 ADULT Medications Given ADULT: Epinephrine 1 mg Route of Administration: IV Medications and Responses #3: Medication Time: 09:48 ADULT Medications Given ADULT: Sodium Bacarbinate 50 meq Route of Administration: IV Medications and Responses #4: Medication Time: 09:50 ADULT Medications Given ADULT: Epinephrine 1 mg, Sodium Bacarbinate 50 meq Route of Administration: IV Heart Rate: 78 EKG Rhythm: Sinus Rhythm Comment meds given post ROSC Medications and Responses #5: Medication Time: 09:57 ADULT Medications Given ADULT: Sodium Bacarbinate 50 meq Route of Administration: IV Heart Rate: 78 EKG Rhythm: Sinus Rhythm Comment med given post ROSC Procedure - Central Venous Cat Central venous catheter time: 09:55 Central venous catheter site: Lt Femoral Nurses Notes [place] Coma Scale Eye Opening: None (1) [place] Coma Scale Verbal: None (1) [place] Coma Scale Motor: None (1) Pupil Reaction: Non Reactive Nurses Notes - Comment: initial blood glucose LOW recheck after dextrose 138 Time Code Ended Time Code Ended: 09:49 Outcome of code: Successful Family notified: Yes Code Team Present: Dr Frances Gracia RN Bridger COTE Nadja Post Resuscitation Neurologica Pupil Size: 5 ROSC Time of ROSC: 09:49 Nadja Solorzano March 20, 2025 11:34
--- NOTE | 2025-03-20 11:46 | RESUS ---
CODE BLUE ASSESSSMENT History of Events History of Events: 2nd Code Bue. No detectable pulse with PEA displayed on bedside induction machine setter. Unable to detect blood pressure. CPR started by ER staff. Code Blue paged overhead Initial Information Date: March 20, 2025 Time: 10:52 Location of Arrest: ER Arrest Witnessed: Yes CPR started initial time: 10:52 CPR started by whom: Hospital Staff Pre-Hospital Care: ACLS Type of arrest: Cardiac Spontaneous Respirations: No Pulse Present: No Monitoring: Pulse Oximetry, Telemetry Crash Cart Opened and Supplies: Yes Comment: same crash cart as 1st code blue Airway Ventilation Breathing at Onset: Assisted O2 Sat by Pulse Oximetry: 72 Oxygen Delivery Method: Ambu-Bag Artificial Ventilation: Bag/Endo tube Intubation Size: 8.0 cuffed Intubated by: Frances Comments: Patient intubated prior to 2nd code blue Circulation Circulation : Time: 10:54 Circulation Comment: PEA Procedure - Central Venous Cat Comment: left femoral placed prior to code Nurses Notes [place] Coma Scale Eye Opening: None (1) [place] Coma Scale Verbal: None (1) [place] Coma Scale Motor: None (1) Pupil Reaction: Non Reactive EKG Rhythm: PEA Nurses Notes - Comment: Per Dr Dunn, continue EPI drip maxed out at 10mcg/min NO EPI IV PUSHES TO BE GIVEN DURING THIS CODE. (PER DR DUNN) Time Code Ended Time Code Ended: 10:54 Post Arrest Status: Outcome of code: Unsuccessful Patient pronounced by: Frances Time patient pronounced: 10:54 Family notified: Yes Code Team Present: Dr Frances Sparks RN Nadja Post Resuscitation Neurologica Pupil Size: 5 Nadja Solorzano March 20, 2025 11:45
[2025-03-20 12:02] LABS: Red Blood Cells 0.85 10^6/uL (4.5-5.90)
[2025-03-20 12:04] LABS: Hematocrit 10.9 % (41.0-53.0); Mean Corpuscular Hemoglobin 37.5 pg (28.0-32.0); Mean Corpuscular Volume 129.1 fL (80.0-100.0); Platelet Count (auto) 38 10^3/uL (140-450); White Blood Cell 7.6 10^3/uL (4.4-10.8)
[2025-03-20 12:11] LABS: Hemoglobin 3.2 g/dL (13.5-17.5)
[2025-03-20 12:13] LABS: Alkaline Phosphatase 47 U/L (46-116); Anion Gap 20.00001 (5-15); Basophils % (manual) 0 (0.0-2.0); Blast Cells 0; Chloride 106 mmol/L (98-107); Metamyelocytes % 0; Promyelocytes % 0; Reactive Lymphocytes 0; Sodium 136 mmol/L (136-145)
[2025-03-20 12:15] LABS: BUN/Creatinine Ratio 13.1 (10.0-20.0)
[2025-03-20 12:16] LABS: Alanine Aminotransferase 237 U/L (7-40); Albumin 1.4 g/dL (3.2-4.8); Aspartate Aminotransferase 847 U/L (13-40); Bilirubin, Total 15.3 mg/dL (0.2-1.0); Blood Urea Nitrogen 76 mg/dL (9-23); Calcium 7.8 mg/dL (8.7-10.4); Glucose 164 mg/dL (74-106); Total Protein 3.3 g/dL (5.7-8.2)
[2025-03-20 12:23] LABS: Carbon Dioxide < 10 mmol/L (20-31); Potassium 7.5 mmol/L (3.5-5.1)
[2025-03-20 12:37] LABS: Anisocytosis Slight; Band Neutrophils % (manual) 1; Eosinophils % (manual) 2 (0-7); Lymphocytes % (manual) 26 (10.0-50.0); Macrocytosis Marked; Monocytes % (manual) 6 (0-12); Myelocytes % 1; Platelet Estimate Decreased
== END 2025-03-20 11:38 ==
LOC: EDBD 09:41 → ER 09:41
DX: I46.9 Cardiac arrest, cause unspecified (principal); G93.41 Metabolic encephalopathy; J96.01 Acute respiratory failure with hypoxia; Z79.899 Other long term (current) drug therapy
CPT/HCPCS: 31500; 36415; 36556; 36600; 71045; 80053; 82805; 84484; 85007; 85027; 87070; 87205; 92950; 93005; 99291; 99292; J0171; J1265; J2250; J7042